=== PATIENT | female | born 1995 | race African-American/Black ===

== ENCOUNTER 2018-08-21 03:52 | Emergency (ER) | payer MEDICAID, SELFPAY ==
[2018-08-21] MEDS ORDERED: Ketorolac Tromethamine 60 MG/2 ML VIAL ONE (05:04)
[2018-08-21] MEDS ORDERED: Dexamethasone 10 MG/ML VIAL ONE (05:49)
== END 2018-08-21 05:58 | disposition home or self-care (01) ==
LOC: ERS 03:52
DX: J02.9 Acute pharyngitis, unspecified (principal)
CPT/HCPCS: 87081; 87430; 96372; J1100; J1885